=== PATIENT | male | born 1965 | race Caucasian/White ===

== ENCOUNTER 2018-02-26 10:04 | Emergency (ER) | payer BC ==
[2018-02-26 10:19] VITALS: RESP 18; TEMP 98.1
[2018-02-26] MEDS ORDERED: PROPARACAINE 0.5% OPHTH DROPS 15 ML BTL LEFT EYE STA (10:35)
[2018-02-26] MEDS ORDERED: TOBRAMYCIN 0.3% OPHTH OINT 3.5 GM TUBE LEFT EYE STA (11:04)
[2018-02-26] MEDS ORDERED: DIPH,PERTUS(ACELL)TETVAC-LF 0.5 ML VIAL IM ONE (11:04)
--- NOTE | 2018-02-26 11:05 | ED ---
Eye Problem HPI - General Chief complaint: Eye Problems Stated complaint: Eye problems Time Seen by Provider: 02/26/18 10:33 Source: patient Mode of arrival: ambulatory Limitations: no limitations - History of Present Illness Initial comments: 53-year-old male patient presents to the emergency department today for evaluation of left eye discomfort and foreign body. Patient states he has had a piece of what he believes to be a grinding wheel and his eye for the last 2 weeks. Patient states he has had this happen before and usually the piece will come out on its own. Patient states that this is the first day off he has had so is unable to come in for evaluation. Denies any drainage or swelling to the eye. Denies any fevers or chills. Denies any visual disturbance. He is unsure when his last tetanus vaccine was given. Patient denies any headache, neck pain, back pain, chest pain, shortness of breath, dizziness, weakness, abdominal pain, nausea, vomiting, or difficulties with bowel movements or urination. - Related Data Allergies Allergy/AdvReac Type Severity Reaction Status Date / Time No Known Allergies Allergy Verified 02/26/18 10:19 Review of Systems ROS Statement: Those systems with pertinent positive or pertinent negative responses have been documented in the HPI. ROS Other: All systems not noted in ROS Statement are negative. Past Medical History Past Medical History: No Reported History History of Any Multi-Drug Resistant Organisms: None Reported Past Surgical History: No Surgical Hx Reported Past Psychological History: No Psychological Hx Reported Smoking Status: Never smoker Past Alcohol Use History: Daily Past Drug Use History: None Reported General Exam Limitations: no limitations General appearance: alert, in no apparent distress, other (This is a well- developed, well-nourished adult male patient in no acute distress. Vital signs upon presentation are temperature 98.1F, pulse 67, respirations 18, blood pressure 163/105, pulse ox 99% on room air.) Eye exam: Present: normal appearance, PERRL, EOMI, conjunctival injection (mild left), other (Patient has obvious foreign body noted to the left cornea at approximately 3:00. There is some mild conjunctival injection.). Absent: scleral icterus, periorbital swelling ENT exam: Present: mucous membranes moist. Absent: normal exam Respiratory exam: Present: normal lung sounds bilaterally. Absent: respiratory distress, wheezes, rales, rhonchi, stridor Cardiovascular Exam: Present: regular rate, normal rhythm, normal heart sounds. Absent: systolic murmur, diastolic murmur, rubs, gallop, clicks GI/Abdominal exam: Present: soft, normal bowel sounds. Absent: distended, tenderness, guarding, rebound, rigid Neurological exam: Present: alert, oriented X3, CN II-XII intact Psychiatric exam: Present: normal affect, normal mood Skin exam: Present: warm, dry, intact, normal color. Absent: rash Course Vital Signs 02/26/18 02/26/18 10:16 12:04 Temperature 98.1 F Pulse Rate 67 72 Respiratory 18 18 Rate Blood Pressure 163/105 127/93 O2 Sat by Pulse 99 99 Oximetry Medical Decision Making - Medical Decision Making 53-year-old male patient presents to the emergency department today for evaluation of foreign body to the left eye. Physical examination did reveal a obvious foreign body to the left cornea at approximately 3:00. Patient did have mild conjunctival injection surrounding the area. No drainage or eyelid swelling. Patient denied visual disturbance. Did remove the foreign body using the Fajardo brush, rest ring was removed as well. Patient be started on tobramycin ophthalmic ointment to use 4 times daily until it's gone. He is instructed follow up with commercial lease administrator for recheck as soon as possible. Return immediately for any new, worsening, or concerning symptoms. He verbalizes understanding and agrees with this plan. Disposition Clinical Impression: Foreign body of left eye Disposition: HOME SELF-CARE Condition: Good Instructions: Tobramycin (Into the eye), Eye Foreign Body (ED) Additional Instructions: Use tobramycin ointment, 1 cm ribbon, to the lower eyelid 4 times daily while awake. Follow-up with commercial lease administrator for further evaluation 1-2 days. Return immediately for any new, worsening, or concerning symptoms. Is patient prescribed a controlled substance at d/c from ED?: No Referrals: Juan M Pinto DO [Primary Care Provider] - 1-2 days Time of Disposition: 11:05
[2018-02-26 12:07] VITALS: BP 127/93; PULSE 72
== END 2018-02-26 12:14 | disposition home or self-care (01) ==
LOC: EC 10:04
DX: T15.02XA Foreign body in cornea, left eye, initial encounter (principal); Z23 Encounter for immunization
CPT/HCPCS: 65220; 90471; 90715; 99283